=== PATIENT | male | born 2000 | race Caucasian/White ===

== ENCOUNTER 2020-07-09 22:52 | Emergency (ER) | payer BC ==
[2020-07-09 23:24] VITALS: BP 144/77; PULSE 100; TEMP 98.9; BMI 30.4
== END 2020-07-09 23:25 | disposition home or self-care (01) ==
LOC: FER 22:52
DX: R10.30 Lower abdominal pain, unspecified (principal)
CPT/HCPCS: 99281-25; C9803; U0003

== ENCOUNTER 2022-02-11 15:15 | Emergency (ER) | payer BC, OTHER ==
[2022-02-11 15:46] VITALS: BP 137/87; PULSE 98; RESP 20; TEMP 98; BMI 30.4
== END 2022-02-11 16:29 | disposition home or self-care (01) ==
LOC: FER 15:15
DX: M76.51 Patellar tendinitis, right knee (principal)
CPT/HCPCS: 73560-TC-RT-FY; 99283-25